=== PATIENT | female | born 1950 | race African-American/Black ===

== ENCOUNTER 2025-08-23 11:27 | Inpatient (IN) | payer MEDICARE, OTHER ==
[2025-08-23] MEDS ORDERED: niCARdipine 25 MG/10 ML SDV ONE (11:48)
[2025-08-23] MEDS ORDERED: Tenecteplase 50 MG ONE (12:20)
[2025-08-23 12:31] LABS: Bacteria/HPF 1+ HPF (None Seen); CAUTI Indications for Culture Alt mental st,lethar; Glucose, Urine (Dipstick) Greater than 1000 mg/dL (Negative); Leukocyte Negative Leu/uL (Negative); Protein, Urine (Dipstick) 30 mg/dL (Neg-Trace); RBC/HPF 0-3 HPF (0-3); Specific Gravity, Urine 1.021 (1.002-1.036)
[2025-08-23 12:32] LABS: #Basophils Less than 0.03 10x3/uL (0.0-0.2); #Eosinophils 0.12 10x3/uL (0.0-0.7); #Monocytes 0.30 10x3/uL (0.11-0.59); #Neutrophils 2.77 10x3/uL (1.40-6.50); %Basophils 0.4 % (0.0-1.0); %Eosinophils 2.4 % (0.0-10.0); %Lymphocytes 35.4 % (21.0-51.0); %Monocytes 6.0 % (0.0-10.0); %Neutrophils 55.4 % (42.0-75.0); Hematocrit 36.1 % (36.0-47.0); Hemoglobin 11.9 g/dL (12.0-16.0); Mean Corpuscular Hemoglobin 27.1 pg (27.0-31.0); Mean Corpuscular Volume 82.2 fL (78.0-98.0); Platelet Count 232 10x3/uL (130-400); Red Blood Cell (RBC) Count 4.39 mill/uL (4.20-5.40); White Blood Cell (WBC) Count 5.00 10x3/uL (4.8-10.8)
[2025-08-23 12:32] LABS: Urine Culture Reflex No No
[2025-08-23 12:39] LABS: Cocaine Metabolite Screen Negative (Negative); THC/Cannabinoid Screen Negative (Negative); Tricyclic Screen Negative (Negative)
[2025-08-23 12:42] LABS: Magnesium 1.7 mg/dL (1.6-2.6)
[2025-08-23 12:43] LABS: Acetaminophen Less than 10 mcg/mL (Less than 10); Salicylate Less than 8.0 mg/dL (Less than 8.0)
[2025-08-23 12:46] LABS: INR-International Normal Ratio 1.0; PTT 29.2 sec (22.9-36.1); Prothrombin Time 12.8 sec (12.0-14.7)
[2025-08-23 12:48] LABS: ALT (SGPT) 8 U/L (Less than 34); AST (SGOT) 16 U/L (11-34); Albumin 3.5 g/dL (3.1-4.5); Alkaline Phosphatase 145 U/L (40-110); Anion Gap 19 mmol/L (10-20); BUN (Urea Nitrogen) 8 mg/dL (9.8-20.1); Bilirubin, Total 0.4 mg/dL (0.3-1.2); Calc. Creatinine Clearance 0 mL/min (70-130); Calcium 9.3 mg/dL (7.8-10.44); Carbon Dioxide 27 mmol/L (23-31); Chloride 91 mmol/L (98-107); Globulin 3.4 g/dL (2.4-3.5); Glucose 638 mg/dL (83-110); Potassium 3.2 mmol/L (3.5-5.1); Sodium 134 mmol/L (136-145)
[2025-08-23] MEDS ORDERED: Communication Order-Pharmacy FS SCH (13:44)
[2025-08-23] MEDS ORDERED: Glucagon 1 MG/ML KIT IM PRN (13:48)
[2025-08-23] MEDS ORDERED: Dextrose 50% Abboject 50 ML SYRINGE SLOW IVP PRN (13:48)
[2025-08-23] MEDS ORDERED: Iopamidol 370 76% 100 ML VIAL ONE (14:47)
[2025-08-23] MEDS: niCARdipine 25 MG in Sodium Chloride 0.9% 250 ML 250 ML IVPB PRN (16:35)
[2025-08-23] MEDS: Potassium Chloride 20 MEQ in Premix 1 BAG IVPB SCH (16:35)
[2025-08-23] MEDS: FLU (Fluad Triv) 25-26 (65UP)PF 45 MCG/0.5 ML Syringe IM ONE (16:36)
[2025-08-23] MEDS: Magnesium 2 GM/50 ML(in water) 2 GM in Premix 1 BAG IVPB SCH (18:29)
[2025-08-23] MEDS: Ondansetron PF 4 MG/2 ML Vial IVP PRN (18:29)
[2025-08-23] MEDS: Insulin Glargine 30 UNITS/0.3 ML VIAL SC SCH ×2 (18:49→21:51)
[2025-08-23] MEDS: Famotidine/PF 20 mg/2ml Vial SLOW IVP SCH (21:51)
[2025-08-24 03:44] VITALS: BMI 28.3
[2025-08-24] MEDS ORDERED: HumaLOG 300 UNITS/3 ML VIAL SC PRN (09:02)
[2025-08-24] MEDS: Acetaminophen 325 MG TAB PO PRN (09:53)
[2025-08-24] MEDS: NIFEdipine XL 30 MG ER.TAB PO SCH (11:50)
[2025-08-24 12:53] LABS: Actual Bicarbonate (HCO3v) 27.9 mEq/L (22-28); Base Excess 1.5 mEq/L (-2.0 to +3.0); Calcium, Ionized (venous) 1.15 mmol/L (1.16-1.32); Chloride (VBG) 98 mmol/L (98-106); Hematocrit-VBG 36 % (36.0-47.0); Hemoglobin (Hb) 12.3 g/dL (11.7-16.1); Potassium (VBG) 2.97 mmol/L (3.70-5.30); Sodium 136 mmol/L (133-146)
[2025-08-24] MEDS: hydrALAZINE 20 MG/ML VIAL SLOW IVP PRN (21:30)
[2025-08-25 05:06] LABS: #Basophils Less than 0.03 10x3/uL (0.0-0.2); #Eosinophils 0.27 10x3/uL (0.0-0.7); #Monocytes 0.48 10x3/uL (0.11-0.59); #Neutrophils 4.09 10x3/uL (1.40-6.50); %Basophils 0.3 % (0.0-1.0); %Eosinophils 3.6 % (0.0-10.0); %Lymphocytes 33.9 % (21.0-51.0); %Monocytes 6.5 % (0.0-10.0); %Neutrophils 55.3 % (42.0-75.0); Hematocrit 35.5 % (36.0-47.0); Hemoglobin 11.0 g/dL (12.0-16.0); Mean Corpuscular Hemoglobin 27.0 pg (27.0-31.0); Mean Corpuscular Volume 87.2 fL (78.0-98.0); Platelet Count 234 10x3/uL (130-400); Red Blood Cell (RBC) Count 4.07 mill/uL (4.20-5.40); White Blood Cell (WBC) Count 7.40 10x3/uL (4.8-10.8)
[2025-08-25 05:09] LABS: Anion Gap 8 mmol/L (10-20); BUN (Urea Nitrogen) 11 mg/dL (9.8-20.1); Calc. Creatinine Clearance 48 mL/min (70-130); Calcium 8.7 mg/dL (7.8-10.44); Carbon Dioxide 29 mmol/L (23-31); Cardiac Risk 3.6 (Less than 4.5); Chloride 101 mmol/L (98-107); Cholesterol 138 mg/dl (< 200 Desired); Glucose 144 mg/dL (83-110); HDL Cholesterol 38 mg/dL (>60 Neg Risk); LDL Cholesterol, Calculated 74 mg/dL; Magnesium 1.9 mg/dL (1.6-2.6); Potassium 2.7 mmol/L (3.5-5.1); Sodium 135 mmol/L (136-145); Triglycerides 130 mg/dL (Less than 150)
[2025-08-25] MEDS: NIFEdipine XL 60 MG ER.TAB PO SCH (18:49)
[2025-08-25 19:52] VITALS: BMI 31.2
[2025-08-26 04:23] LABS: #Basophils 0.03 10x3/uL (0.0-0.2); #Eosinophils 0.24 10x3/uL (0.0-0.7); #Monocytes 0.48 10x3/uL (0.11-0.59); #Neutrophils 2.70 10x3/uL (1.40-6.50); %Basophils 0.5 % (0.0-1.0); %Eosinophils 4.2 % (0.0-10.0); %Lymphocytes 38.9 % (21.0-51.0); %Monocytes 8.4 % (0.0-10.0); %Neutrophils 47.5 % (42.0-75.0); Hematocrit 33.9 % (36.0-47.0); Hemoglobin 10.4 g/dL (12.0-16.0); Mean Corpuscular Hemoglobin 26.7 pg (27.0-31.0); Mean Corpuscular Volume 86.9 fL (78.0-98.0); Platelet Count 227 10x3/uL (130-400); Red Blood Cell (RBC) Count 3.90 mill/uL (4.20-5.40); White Blood Cell (WBC) Count 5.70 10x3/uL (4.8-10.8)
[2025-08-26 04:33] LABS: Anion Gap 10 mmol/L (10-20); BUN (Urea Nitrogen) 15 mg/dL (9.8-20.1); Calc. Creatinine Clearance 49 mL/min (70-130); Calcium 9.0 mg/dL (7.8-10.44); Carbon Dioxide 31 mmol/L (23-31); Chloride 101 mmol/L (98-107); Glucose 120 mg/dL (83-110); Potassium 2.8 mmol/L (3.5-5.1); Sodium 139 mmol/L (136-145)
[2025-08-26] MEDS: NIFEdipine XL 60 MG ER.TAB PO SCH (08:59)
[2025-08-26 15:36] VITALS: BP 116/64; TEMP 98.4
[2025-08-27] MEDS ORDERED: Famotidine/PF 20 mg/2ml Vial SLOW IVP SCH (09:00)
== END 2025-08-26 18:00 | disposition home or self-care (01) | DRG 304 ==
LOC: ERS 11:27 → CCU 13:22 → 2SE 08-24 14:20
PROVIDERS: ADMIT Internal Medicine; ATTEND Internal Medicine
PROC: 3E03317 Introduction of Other Thrombolytic into Peripheral Vein, Percutaneous Approach (ICD-10-PCS; principal; 2025-08-23)
PROC: 0T9B70Z Drainage of Bladder with Drainage Device, Via Natural or Artificial Opening (ICD-10-PCS; 2025-08-23)
DX: I16.9 Hypertensive crisis, unspecified (principal); G93.41 Metabolic encephalopathy; E87.1 Hypo-osmolality and hyponatremia; G45.9 Transient cerebral ischemic attack, unspecified; I13.0 Hypertensive heart and chronic kidney disease with heart failure and stage 1 through stage 4 chronic kidney disease, or unspecified chronic kidney disease; R29.810 Facial weakness; Z90.49 Acquired absence of other specified parts of digestive tract; I50.9 Heart failure, unspecified; Z98.890 Other specified postprocedural states; Z90.710 Acquired absence of both cervix and uterus; E11.65 Type 2 diabetes mellitus with hyperglycemia; Z79.4 Long term (current) use of insulin; E87.6 Hypokalemia; E83.42 Hypomagnesemia; Z91.199 Patient's noncompliance with other medical treatment and regimen due to unspecified reason; N18.9 Chronic kidney disease, unspecified; E11.22 Type 2 diabetes mellitus with diabetic chronic kidney disease; G47.33 Obstructive sleep apnea (adult) (pediatric)
CPT/HCPCS: 36415; 36416; 37195; 51702; 70450; 70496; 70498; 70551; 71045; 80048; 80053; 80061; 80306; 80307; 81001; 82010; 82805; 83036; 83735; 84100; 84484; 85025; 85610; 85730; 86850; 86900; 86901; 93005; 93306; 96374; 96375; J0360; J1308; J1815; J2060; J2405; J3101; J3475; J3480; J7050; Q9967